=== PATIENT | male | born 1985 | race Caucasian/White ===

== ENCOUNTER 2018-05-31 12:42 | Outpatient (CLI) | payer OTHER ==
--- NOTE | 2018-05-31 15:04 | RAD ---
LUMBAR SPINE RADIOGRAPH SERIES 4 VIEWS: Date: 05/31/18 INDICATION: Low back pain. FINDINGS: Slight right convexity curvature lumbar spine is present. Neutral lateral view reveals no significant spondylolisthesis. Evaluation with flexion and extension lateral views reveals no evidence of transl ational motion. Mild end plate degeneration with mild osteophytosis is seen at the lower lumbar spine . Metallic clips overlie the right abdomen. 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 No evidence of spondylolisthesis or significant transla tional motion. POS: CEFERINO
== END 2018-05-31 12:43 | disposition home or self-care (01) ==
LOC: SCSRAD 12:42
PROVIDERS: ATTEND Family Medicine
DX: M54.5 Low back pain (principal); M47.816 Spondylosis without myelopathy or radiculopathy, lumbar region
CPT/HCPCS: 72120